=== PATIENT | male | born 1955 | race Caucasian/White ===

== ENCOUNTER 2020-08-27 19:35 | Emergency (ER) | payer MEDICARE, MEDICAID, SELFPAY ==
--- NOTE | ~2020-08-27 | XR_ITS ---
EXAMINATION: XR ELBOW, LEFT CLINICAL INFORMATION: Pain and swelling COMPARISON: None TECHNIQUE: AP, lateral, and oblique views of the left elbow. FINDINGS: No fracture or joint effusion. Alignment is anatomic. Joint spaces are maintained. Marked soft tissue swelling present posteriorly behind the olecranon, could represent bursitis. XR/XR elbow LT min 3V IMPRESSION: Bones appear normal. Soft tissue swelling behind olecranon could represent bursitis.
[2020-08-27 20:08] VITALS: BP 138/77; PULSE 76; RESP 18; TEMP 36.7; O2SAT 96; BMI 34.9
--- NOTE | 2020-08-27 22:10 | ED_ITS ---
HPI - Extremity Problem General Chief complaint: Extremity Injury, Upper Stated complaint: INFECTION IN ARM Time Seen by Provider: 08/27/20 22:10 Source: patient Mode of arrival: ambulatory History of Present Illness HPI Narrative: 64-year-old male with a past medical history of diabetes, hernia repair presenting to the ED complaining of swelling and pain to left elbow x1 week. Reports area felt warm today which made him concerned for infection. Denies known injury/trauma or falls, states has follow-up with Orthopedics in 2 weeks. Denies fever, chills, numbness, tingling MD Complaint: extremity pain and extremity swelling Related Data Previous Rx's Medication Instructions Recorded ibuprofen 800 mg PO Q8H PRN #20 tab 08/27/20 Allergies Allergy/AdvReac Type Severity Reaction Status Date / Time No Known Allergies Allergy Verified 08/27/20 21:24 Review of Systems Review of Systems: Constitutional: No Fever, No Chills Musculoskeletal: + joint pain, No Myalgias, + Joint Swelling Skin: No Skin Lesions, No rash Neuro: No Weakness, No Numbness, No Paresthesias Yes all other systems are reviewed and are negative FOR[facility]LY [facility], [facility] Past Medical History Attestation statement: The following information was validated with the patient. Medical History (Updated 08/28/20 @ 00:01 by Stephanie Cuellar) Diabetes Surgical History (Updated 08/27/20 @ 20:13 by Susannah Mosqueda RN) H/O hernia repair Hx of cholecystectomy Social History Social History Alcohol intake: never Smoked in Last 30 Days: No Use of substances other than those prescribed or required for medical reasons: No Advance Directives: No Advance Directives Information Provided: Yes Physical Exam Vital Signs: Vital Signs: Last Vital Signs Temp 98.1 F 08/27/20 20:08 Pulse 76 08/27/20 20:08 Resp 18 08/27/20 20:08 BP 138/77 08/27/20 20:08 Pulse Ox 96 08/27/20 20:08 Body Mass Index 34.9 Const: General: cooperative and healthy appearing Orientation/consciousness: patient oriented x3 Limitations: no limitations HENMT: Head: Yes normal to inspection Ears: hearing grossly normal bilaterally General nose exam: Normal external nose present Face and sinus: Yes normal facial exam Eyes: General: appearance normal, both eyes and all related structures EOM: EOMs intact bilaterally Neck: Neck: Yes normal visual inspection Resp: Effort & Inspection: normal respiratory effort Cardio: Peripheral pulses: radial pulses present Skin: Rashes: no rashes Wounds: no wounds Neuro: General: patient oriented x3 Gait exam (Neuro): Normal gait present Extrem: Other: Left elbow with notable bursitis. No cellulitis, no fluctuance/induration or streaking. Full range of motion intact. NV intact MDM - Extremity (Nontraumatic) MDM Narrative Medical decision making narrative: On exam vital signs stable, NAD/nontoxic appearing, physical exam consistent with olecranon bursitis. Placed in Flakito wrap, already has orthopedic follow-up. Worrisome signs and symptoms and strict return precautions discussed. No signs of active infection at this time Discharge Plan Discharge Clinical Impression: Bursitis, olecranon Patient Disposition: Home, Self-Care Instructions: Elbow Bursitis (ED) Additional Instructions: You have bursitis Wear Flakito wrap at home as needed for comfort/stability Take Tylenol /Motrin for pain/swelling Follow-up with art specialist in 1-2 weeks If area begins to look infected, is red, there is drainage, it is warm to touch return to the ED sooner Prescriptions: New ibuprofen 800 mg tablet 800 mg PO Q8H PRN (Reason: pain) Qty: 20 RF: 0 Referrals: Tc Cuba MD [Physician] - 1 week Interventions: ED Discharge Assessment Last Done: 08/27/20 23:14 Discharge Date/Time: 08/27/20 22:21
== END 2020-08-27 22:21 | disposition home or self-care (01) ==
PROVIDERS: Emergency Provider Internal Medicine; PCP Family Medicine
DX: M71.522 Other bursitis, not elsewhere classified, left elbow (principal); M25.522 Pain in left elbow; E11.9 Type 2 diabetes mellitus without complications
CPT/HCPCS: 73080; 99283; 99284

== ENCOUNTER 2021-02-09 11:34 | Outpatient (REF) | payer MEDICARE, MEDICAID, SELFPAY | END 2021-02-09 11:35 | disposition home or self-care (01) | LOC: HO.LAB 11:34 | PROVIDERS: PCP Family Medicine; Visit Provider Internal Medicine | DX: Z20.822 Contact with and (suspected) exposure to COVID-19 (principal) | CPT/HCPCS: C9803; U0003; U0005 ==

== ENCOUNTER 2021-07-01 06:20 | Outpatient (REF) | payer MEDICARE, MEDICAID, SELFPAY ==
--- NOTE | ~2021-07-01 | XR_ITS ---
EXAMINATION: XR KNEE, BILATERAL AP STANDING XR KNEE, RIGHT XR KNEE, LEFT CLINICAL INFORMATION: Pain bilateral knee. COMPARISON: None TECHNIQUE: AP bilateral knee standing. 2 views each knee. Total 5 views. FINDINGS: AP BILATERAL KNEE: There is loss of joint space in medial and lateral compartment joint space of both knees. No bony erosive changes. No fracture or dislocation. No loose body seen. RIGHT KNEE: There is mild loss of patellofemoral compartment joint space. No bony erosive changes. No loose bodies. No abnormal suprapatellar joint effusion. LEFT KNEE: There is mild loss of patellofemoral compartment joint space. No bony erosive changes, fracture or dislocation seen. No soft tissue abnormality. XR/XR knee standing BI IMPRESSION: Mild early degenerative changes in tricompartment of both knees. No acute fracture, dislocation or joint effusion seen.
--- NOTE | ~2021-07-01 | XR_ITS ---
EXAMINATION: XR KNEE, BILATERAL AP STANDING XR KNEE, RIGHT XR KNEE, LEFT CLINICAL INFORMATION: Pain bilateral knee. COMPARISON: None TECHNIQUE: AP bilateral knee standing. 2 views each knee. Total 5 views. FINDINGS: AP BILATERAL KNEE: There is loss of joint space in medial and lateral compartment joint space of both knees. No bony erosive changes. No fracture or dislocation. No loose body seen. RIGHT KNEE: There is mild loss of patellofemoral compartment joint space. No bony erosive changes. No loose bodies. No abnormal suprapatellar joint effusion. LEFT KNEE: There is mild loss of patellofemoral compartment joint space. No bony erosive changes, fracture or dislocation seen. No soft tissue abnormality. XR/XR knee RT 2V IMPRESSION: Mild early degenerative changes in tricompartment of both knees. No acute fracture, dislocation or joint effusion seen.
--- NOTE | ~2021-07-01 | XR_ITS ---
EXAMINATION: XR KNEE, BILATERAL AP STANDING XR KNEE, RIGHT XR KNEE, LEFT CLINICAL INFORMATION: Pain bilateral knee. COMPARISON: None TECHNIQUE: AP bilateral knee standing. 2 views each knee. Total 5 views. FINDINGS: AP BILATERAL KNEE: There is loss of joint space in medial and lateral compartment joint space of both knees. No bony erosive changes. No fracture or dislocation. No loose body seen. RIGHT KNEE: There is mild loss of patellofemoral compartment joint space. No bony erosive changes. No loose bodies. No abnormal suprapatellar joint effusion. LEFT KNEE: There is mild loss of patellofemoral compartment joint space. No bony erosive changes, fracture or dislocation seen. No soft tissue abnormality. XR/XR knee LT 2V IMPRESSION: Mild early degenerative changes in tricompartment of both knees. No acute fracture, dislocation or joint effusion seen.
== END 2021-07-01 06:21 | disposition home or self-care (01) ==
LOC: HO.HOSX 06:20
PROVIDERS: Visit Provider Physician Assistant
DX: M17.11 Unilateral primary osteoarthritis, right knee (principal); M25.562 Pain in left knee
CPT/HCPCS: 73560; 73565; 99202

== ENCOUNTER → 2021-07-27 10:00 | Outpatient (BNVA) | payer MEDICARE, MEDICAID, SELFPAY | PROVIDERS: PCP Family Medicine; Visit Provider Orthopaedic Surgery | DX: M72.0 Palmar fascial fibromatosis [Dupuytren] (principal) | CPT/HCPCS: 20612; 99202 ==

== ENCOUNTER 2021-08-12 15:31 | Outpatient (REF) | payer MEDICARE, MEDICAID, SELFPAY ==
--- NOTE | ~2021-08-12 | XR_ITS ---
EXAMINATION: XR CERVICAL SPINE CLINICAL INFORMATION: Trauma, pain, probable arthritis. COMPARISON: None TECHNIQUE: The cervical spine is imaged in 7 views: AP, lateral, swimmer's, odontoid x4. FINDINGS: There is straightening with mild reversal cervical lordosis. The odontoid appears intact. The vertebral bodies are normal in height. There is no visible fracture, vertebral compression, spondylolisthesis, or prevertebral soft tissue swelling. No perched facet. There are degenerative disc changes C5-C6 and C6-C7 with disc narrowing and partially bridging anterior osteophytes. XR/XR cervical spine 3V IMPRESSION: -Degenerative disc changes C5-C6 and C6-C7. -Mild reversal cervical lordosis. No prevertebral compression, spondylolisthesis, or prevertebral soft tissue swelling.
--- NOTE | ~2021-08-12 | XR_ITS ---
EXAMINATION: XR FINGER, LEFT CLINICAL INFORMATION: Trauma, pain COMPARISON: None TECHNIQUE: AP view left hand is performed along with 2 views left fourth finger. FINDINGS: There is no visible acute or healing fracture, dislocation, destructive process. The ulnar variance is neutral. There is mild narrowing DIP joints. No erosive changes. XR/XR finger LT min 2V IMPRESSION: No fracture or dislocation.
== END 2021-08-12 15:32 | disposition home or self-care (01) ==
LOC: HO.XRAY 15:31
PROVIDERS: Absent Provider Internal Medicine; PCP Internal Medicine; Visit Provider Emergency Medicine
DX: S19.9XXA Unspecified injury of neck, initial encounter (principal); S69.92XA Unspecified injury of left wrist, hand and finger(s), initial encounter
CPT/HCPCS: 72040; 73140

== ENCOUNTER 2021-10-04 08:24 | Outpatient (REF) | payer MEDICARE, MEDICAID, SELFPAY ==
--- NOTE | ~2021-10-04 | XR_ITS ---
EXAMINATION: XR SHOULDER, LEFT CLINICAL INFORMATION: Pain COMPARISON: None TECHNIQUE: Three views of the left shoulder. FINDINGS: Bone alignment is normal. No fracture or dislocation is seen. The glenohumeral joint is normal. There is mild arthritis at the acromioclavicular joint. There is soft tissue calcification adjacent to the greater tuberosity. XR/XR shoulder LT min 2V IMPRESSION: Mild degenerative changes at the acromioclavicular joint and soft tissue calcification adjacent to the greater tuberosity.
== END 2021-10-04 08:25 | disposition home or self-care (01) ==
LOC: HO.HOSX 08:24
PROVIDERS: Visit Provider Physician Assistant
DX: M75.82 Other shoulder lesions, left shoulder (principal)
CPT/HCPCS: 20610; 73030; 99202; J1020

== ENCOUNTER 2022-03-02 13:04 | Outpatient (REF) | payer MEDICARE, MEDICAID, SELFPAY ==
--- NOTE | ~2022-03-02 | XR_ITS ---
EXAMINATION: XR LUMBOSACRAL SPINE WITH OBLIQUES CLINICAL INFORMATION: Lumbago with bilateral sciatica. COMPARISON: None TECHNIQUE: AP, both oblique, and lateral views of the lumbar spine. Lateral view of the lumbosacral junction. FINDINGS: There is normal lumbar lordosis. The vertebral heights and alignment are normal. There is loss of L5-S1 and L4-L5 disc heights. No visible acute fracture, dislocation seen. There is mild spondylosis at the L4-L5 disc level. No aggressive lytic or sclerotic process seen. XR/XR lumbar spine 4V min IMPRESSION: Degenerative disc changes L5-S1 and L4-L5 disc levels. No visible acute fracture, dislocation or lytic process seen.
== END 2022-03-02 13:05 | disposition home or self-care (01) ==
LOC: HO.XRAY 13:04
PROVIDERS: Absent Provider Internal Medicine; PCP Internal Medicine; Visit Provider Emergency Medicine
DX: M54.41 Lumbago with sciatica, right side (principal); M54.42 Lumbago with sciatica, left side; E11.40 Type 2 diabetes mellitus with diabetic neuropathy, unspecified
CPT/HCPCS: 72110

== ENCOUNTER 2022-06-08 12:34 | Outpatient (REF) | payer MEDICARE, MEDICAID, SELFPAY ==
--- NOTE | 2022-06-08 09:30 | EMG_ITS ---
Please see scanned EMG / Nerve Conduction Report. MTDD
== END 2022-06-08 12:35 | disposition home or self-care (01) ==
LOC: HO.NEURO 12:34
PROVIDERS: PCP Internal Medicine; Visit Provider Emergency Medicine
DX: E11.40 Type 2 diabetes mellitus with diabetic neuropathy, unspecified (principal); M54.41 Lumbago with sciatica, right side; M54.42 Lumbago with sciatica, left side
CPT/HCPCS: 95885; 95911